=== PATIENT | male | born 2000 | race Caucasian/White ===

== ENCOUNTER 2022-04-03 21:05 | Emergency (ER) | payer SELFPAY ==
[~2022-04-03] VITALS: Ht 185.4 cm; Wt 69.7 kg
[2022-04-03 21:56] VITALS: BP 138/51
== END 2022-04-04 02:15 | disposition left against medical advice (07) ==
LOC: ER 21:05
DX: Z53.21 Procedure and treatment not carried out due to patient leaving prior to being seen by health care provider (principal)